=== PATIENT | male | born 1955 | race Caucasian/White ===

== ENCOUNTER 2018-07-17 06:54 | Day surgery (SDC) | payer MEDICARE, SELFPAY | END 2018-07-17 11:39 | disposition short-term general hospital (02) | PROVIDERS: Family Provider Nurse Practitioner Family; PCP Nurse Practitioner Family; Visit Provider Internal Medicine Cardiovascular Disease | DX: I25.110 Atherosclerotic heart disease of native coronary artery with unstable angina pectoris (principal); I47.1 Supraventricular tachycardia; I10 Essential (primary) hypertension; E78.5 Hyperlipidemia, unspecified; E66.9 Obesity, unspecified; Z95.5 Presence of coronary angioplasty implant and graft; Z87.891 Personal history of nicotine dependence; Z79.82 Long term (current) use of aspirin; Z79.899 Other long term (current) drug therapy | CPT/HCPCS: 93458; J7040; C1769; C1894; Q9967 ==